=== PATIENT | female | born 2005 | race Caucasian/White ===

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

== ENCOUNTER → 2024-05-23 09:30 | Outpatient (CLI) | payer OTHER, SELFPAY ==
--- NOTE | 2024-05-23 10:05 | DI.RAD.S_ITS ---
PROCEDURE: XR CHEST 2V INDICATIONS: r/o pna, fever, pleuritic chest pain TECHNIQUE: 2 views of the chest were acquired. [facility] 10:36. FINDINGS: Surgical changes and devices: None. Lungs and pleura: Right lower lobe consolidation. Mediastinum: Mediastinal contours are normal. Heart size is normal. Bones and chest wall: No suspicious bony abnormalities. Soft tissues appear unremarkable. IMPRESSION: Right lower lobe consolidation, concerning for pneumonia. Dictated by: Johan Delvalle M.D. on 05/23/2024 at 14:29 Approved by: Johan Delvalle M.D. on 05/23/2024 at 14:30
[2024-05-23 10:13] LABS: Influenza A - CEPHEID Flu A NEGATIVE (NEGATIVE); Influenza B - CEPHEID Flu B NEGATIVE (NEGATIVE); Respiratory Syncytial Virus Negative (Negative)
[2024-05-23 10:28] LABS: COVID-19 CEPHEID 4-PLEX PCR Negative (Negative)
== END ==
PROVIDERS: Family Provider Family Medicine; PCP Family Medicine; Referring Provider Nurse Practitioner Family; Visit Provider Nurse Practitioner Family
DX: R05.1 Acute cough (principal); R05.9 Cough, unspecified
CPT/HCPCS: 0241U; 71046

== ENCOUNTER → 2024-06-03 08:07 | Outpatient (CLI) | payer OTHER, SELFPAY ==
--- NOTE | 2024-06-03 08:09 | DI.RAD.S_ITS ---
PROCEDURE: XR CHEST 2V INDICATIONS: Pneumonia FU TECHNIQUE: 2 views of the chest were acquired. COMPARISON: [facility], CR, XR CHEST 2V, 05/23/2024, 10:01. [facility], CR, XR CHEST 2V, 01/31/2019, 22:36. FINDINGS: Surgical changes and devices: None. Lungs and pleura: Right infrahilar opacity is decreased, but mild involvement persists seen on lateral view. No pleural effusions. Mediastinum: Normal heart size Bones and chest wall: Unremarkable IMPRESSION: Mild persistent opacity seen in the middle lobe, decreased but not fully resolved. Dictated by: Chris Olson M.D. on 06/03/2024 at 15:37 Approved by: Chris Olson M.D. on 06/03/2024 at 15:39
== END ==
PROVIDERS: Family Provider Family Medicine; PCP Family Medicine; Referring Provider Family Medicine; Visit Provider Family Medicine
DX: J18.9 Pneumonia, unspecified organism (principal); R05.9 Cough, unspecified
CPT/HCPCS: 71046

== ENCOUNTER 2024-06-07 13:42 | Emergency (ER) | payer OTHER, SELFPAY ==
[2024-06-07 14:03] VITALS: BP 123/66; PULSE 66; RESP 17; TEMP 37; O2SAT 96; BMI 35.7
--- NOTE | 2024-06-07 14:34 | ED_ITS ---
HPI - URI/Sore Throat <MARTINE Bland - Last Filed: 06/07/24 15:48> General Chief Complaint: Upper Respiratory Symptoms Stated Complaint: DX OF PNEUMONIA T-3 WEEKS, ANTIBIOTICS NOT WORK Time Seen by Provider: 06/07/24 14:16 Source: patient Mode of arrival: Ambulatory History of Present Illness HPI Narrative: 18-year-old female, never smoker, was brought to the emergency department for persistent cough x3 weeks. Patient was evaluated in the walk-in clinic on May 23, diagnosed with pneumonia and placed on cefdinir and azithromycin. Patient contacted her family doctor on June 03 regarding persistent coughing with a new chest x-ray and prescription for azithromycin. Patient has been taking her antibiotics for 4 days and complaining that her cough is worsening and now having left-sided chest wall discomfort. Patient mother are concerned that she may have whooping cough as her last Tdap was approximately 11 years ago. Patient and mother read that whooping cough is on the rise and want to be evaluated for this. Related Data Previous Rx's Medication Instructions Recorded hydroxyzine HCl 25 mg tablet 25 mg PO 3XD PRN for anxiety #270 03/20/23 tabs azithromycin 500 mg tablet See Rx Instructions PO .COMPLEX #9 05/23/24 tabs sertraline 25 mg tablet See Rx Instructions .Route 05/26/24 .COMPLEX #90 tabs Allergies Allergy/AdvReac Type Severity Reaction Status Date / Time amoxicillin [AMOXICILLIN] Allergy Mild SENSITIVE Verified 06/07/24 14:11 Sulfa (Sulfonamide Allergy Mild MOTHER Verified 06/07/24 14:11 Antibiotics) ALLERGIC [SULFA (SULFONAMIDE TO SULFA ANTIBIOTICS)] Review of Systems <MARTINE Bland - Last Filed: 06/07/24 15:48> Review of Systems Narrative: Narrative: See HPI. GENERAL: Denies chills, fatigue, fever, sweats. HEENT: Denies sinus pain, ear pain, sore throat, difficulty swallowing, dizziness. RESPIRATORY: Denies dyspnea, wheezing, sputum. Endorses persistent cough. CARDIOVASCULAR: Denies palpitations, edema. Endorses cough and left-sided chest wall pain. GASTROINTESTINAL: Denies nausea, vomiting, abdominal pain, diarrhea, constipation. MSK: Denies weakness, joint pain, or bony pain. SKIN: Denies rash, skin lesions, or pruritis. NEUROLOGIC: Denies weakness, dizziness, headache, numbness, confusion. Patient History <MARTINE Bland - Last Filed: 06/07/24 15:48> Medical History EVER (generalized anxiety disorder) Social History Smoking Status: Never smoker Smoking Status: Never smoker Exam <MARTINE Bland - Last Filed: 06/07/24 15:48> Narrative Exam Narrative: Exam Narrative: GENERAL: This is a well-nourished, well-developed patient, in no acute distress. HEAD: Atraumatic. Normocephalic. EYES: Pupils equal round and reactive. Extraocular motions intact. No scleral icterus, injection or drainage. ENT: Nose without bleeding, purulent drainage. Airway patent. CARDIOVASCULAR: Regular rate and rhythm without murmurs, peripheral pulses intact, cap refill <2 sec. RESPIRATORY: Breath sounds equal and clear bilaterally. No wheezes, rales, or rhonchi. No witnessed cough. No increased respiratory effort. No accessory muscle use. GASTROINTESTINAL: Abdomen soft, non-tender, nondistended without guarding or rebound. No suprapubic pain. MSK: Moves all extremities. Normal range of motion, no clubbing or edema. Neurovascularly intact. No bruising or signs of trauma noted to left lateral chest wall. NEURO: A&O x 3. SKIN: Warm, dry, no rashes or lesions noted. Initial Vital Signs Initial Vital Signs: Vital Signs Temperature 98.6 F 06/07/24 14:03 Pulse Rate 66 06/07/24 14:03 Respiratory Rate 17 06/07/24 14:03 Blood Pressure 123/66 06/07/24 14:03 Pulse Oximetry 96 06/07/24 14:03 Oxygen Delivery Method Room Air 06/07/24 14:03 Reviewed <Shreya Crowder DO - Last Filed: 06/09/24 18:11> Initial Vital Signs Initial Vital Signs: Vital Signs Temperature 98.6 F 06/07/24 14:03 Pulse Rate 66 06/07/24 14:03 Respiratory Rate 17 06/07/24 14:03 Blood Pressure 123/66 06/07/24 14:03 Pulse Oximetry 96 06/07/24 14:03 Oxygen Delivery Method Room Air 06/07/24 14:03 Course <MARTINE Bland - Last Filed: 06/07/24 15:48> Orders Ordered: ED Orders 06/07/24 14:33 XR chest 2V Stat 06/07/24 15:40 Respiratory Panel (Film Array) Stat Vital Signs Vital signs: Vital Signs - 8 hr 06/07/24 14:03 Temperature 98.6 F Pulse Rate 66 Respiratory Rate 17 Blood Pressure 123/66 Pulse Oximetry 96 Oxygen Delivery Method Room Air <Shreya Crowder DO - Last Filed: 06/09/24 18:11> Orders Ordered: ED Orders 06/07/24 14:33 XR chest 2V Stat 06/07/24 15:40 Respiratory Panel (Film Array) Stat Vital Signs Vital signs: Vital Signs - 8 hr 06/07/24 14:03 Temperature 98.6 F Pulse Rate 66 Respiratory Rate 17 Blood Pressure 123/66 Pulse Oximetry 96 Oxygen Delivery Method Room Air MDM - URI/Sore Throat <MARTINE Bland - Last Filed: 06/07/24 15:48> Differential Diagnosis Differential diagnosis: Likely upper respiratory infection and other (Pneumonia) Lab Data Labs: Lab Results 06/07/24 Range/Units 15:36 Chlamy pneumoniae PCR Not detected (Not Detect) Adenovirus (PCR) Not detected (Not Detect) B. pertussis DNA (PCR) Not detected (Not Detect) B.parapertussis DNA PCR Not detected (Not Detecte) Coronavirus OC43 (PCR) Not detected (Not Detect) Coronavirus HKU1 (PCR) Not detected (Not Detect) Coronavirus 229E (PCR) Not detected (Not Detect) SARS-CoV-2 (PCR) Not detected (Not Detecte) Coronavirus NL63 (PCR) Not detected (Not Detect) Human Metapneumovir PCR Not detected (Not Detect) Influenza Type A (PCR) Not detected (Not Detect) Influenza Type B (PCR) Not detected (Not Detect) M. pneumoniae (PCR) Not detected (Not Detect) Parainfluenza 1 (PCR) Not detected (Not Detect) Parainfluenza 2 (PCR) Not detected (Not Detect) Parainfluenza 3 (PCR) Not detected (Not Detect) Parainfluenza 4 (PCR) Not detected (Not Detect) RSV (PCR) Not detected (Not Detect) Entero/Rhino (PCR) Not detected (Not Detect) Imaging Data Chest x-ray: Radiologist's Impression: [address] [address] XRay Report Signed Patient: Laya Holcomb MR#: [id number] : 2005 Acct:[id number] Age/Sex: 18 / F Date of Service: 06/07/24 Loc: ED Accession Number: [id number] Procedure: XR chest 2V Ordering Provider: Jayden Lowe PROCEDURE: XR CHEST 2V INDICATIONS: Pneumonia x 2 weeks- persistent cough TECHNIQUE: 2 views of the chest were acquired. COMPARISON: [facility], CR, XR CHEST 2V, 06/03/2024, 8:16. [facility], CR, XR CHEST 2V, 05/23/2024, 10:01. [facility], CR, XR CHEST 2V, 01/31/2019, 22:36. [facility], CR, CHEST 2 VIEW, 10/08/2009, 10:36. FINDINGS: Surgical changes and devices: None. Lungs and pleura: Lungs are clear. No pleural effusions or pneumothorax. Mediastinum: Mediastinal contours are normal. Heart size is normal. Bones and chest wall: No suspicious bony abnormalities. Soft tissues appear unremarkable. IMPRESSION: No acute cardiothoracic process. Dictated by: Jarred Medina M.D. on 06/07/2024 at 14:56 Approved by: Jarred Medina M.D. on 06/07/2024 at 14:57 [facility] Narrative Medical decision making narrative: 18-year-old female with persistent cough secondary to diagnosis of pneumonia. Patient reports worsening symptoms that include left-sided chest wall pain and worsening cough. Although patient has received 2 chest x-rays in the last 3 weeks, due to worsening symptoms, will repeat chest x-ray and treat accordingly. Chest x-ray was normal and it appears that the pneumonia has fully resolved. Mother and patient are adamant that they want to be tested for whooping cough but would hold off on updating there Tdap until they see their family doctor. Mother and patient would like to leave and will contact them with the results of the respiratory panel. Patient mother verbalized understanding and were agreeable to course of action. <Shreya Crowder, DO - Last Filed: 06/09/24 18:11> Lab Data Labs: Lab Results 06/07/24 Range/Units 15:36 Chlamy pneumoniae PCR Not detected (Not Detect) Adenovirus (PCR) Not detected (Not Detect) B. pertussis DNA (PCR) Not detected (Not Detect) B.parapertussis DNA PCR Not detected (Not Detecte) Coronavirus OC43 (PCR) Not detected (Not Detect) Coronavirus HKU1 (PCR) Not detected (Not Detect) Coronavirus 229E (PCR) Not detected (Not Detect) SARS-CoV-2 (PCR) Not detected (Not Detecte) Coronavirus NL63 (PCR) Not detected (Not Detect) Human Metapneumovir PCR Not detected (Not Detect) Influenza Type A (PCR) Not detected (Not Detect) Influenza Type B (PCR) Not detected (Not Detect) M. pneumoniae (PCR) Not detected (Not Detect) Parainfluenza 1 (PCR) Not detected (Not Detect) Parainfluenza 2 (PCR) Not detected (Not Detect) Parainfluenza 3 (PCR) Not detected (Not Detect) Parainfluenza 4 (PCR) Not detected (Not Detect) RSV (PCR) Not detected (Not Detect) Entero/Rhino (PCR) Not detected (Not Detect) Discharge Plan Departure Patient Disposition: Home Clinical Impression: Cough Qualifiers: Cough type: unspecified Qualified Code(s): R05.9 - Cough, unspecified Instructions: DI for Cough -- Adult, DI for Pertussis-Adult Activity Restrictions/Additional Instructions: *You have been diagnosed with a cough. The chest x-ray was normal and I believe your pneumonia has fully resolved. You should continue taking the rest of your antibiotic therapy as previously prescribed. For treatment of cough you may try warm water or tea with honey and lemon, [id number] medications such as Delsym, etc.. Please make sure you stay well hydrated. We will contact you with the results of the respiratory panel. For any worsening symptoms that include chest pain, shortness of breath, intolerable pain, please return to the emergency department. Otherwise, follow up with family doctor as needed. *What to do: *Please continue to take your regular medications as directed. [ ] New medication prescriptions sent to your pharmacy: [ ] [ ] New medication written as a paper prescription [x ] No new medications given *Please follow up with your primary care provider in 2-3 days, call for an appointment. Let them know you were seen in the Emergency Department and that we ask that you be seen in follow up. We will electronically transmit a record of today's note if your PCP is in our system *If you do not have a primary care provider please contact the [facility] Resource line at [phone]. They will ask some questions about your medical history and help get you set up with a doctor in the community. ? Return to ER if you should have any new, worsening or concerning symptoms, such as worsening pain, severe headache, confusion, chest pain, difficulty b reathing, fever greater than 101 F, shaking chills, persistent vomiting to the point that you cannot drink fluids, or other new or worsening symptoms. Prescriptions: No Action azithromycin 500 mg tablet See Rx Instructions PO .COMPLEX Qty: 9 0RF Rx Instructions: For 250 mg dose pack: take 500 mg today (day 1), then 250 mg for 4 days (days 2-5) PO hydroxyzine HCl 25 mg tablet 25 mg PO 3XD PRN (Reason: for anxiety) Qty: 270 0RF sertraline 25 mg tablet See Rx Instructions .ROUTE .COMPLEX Qty: 90 3RF Dose Instruction: TAKE ONE TABLET BY MOUTH ONE TIME DAILY Rx Instructions: TAKE ONE TABLET BY MOUTH ONE TIME DAILY Referrals: Jo Suero MD [Primary Care Provider] - Stand Alone Forms: Patient Portal/API/Survey ED Sign-out <Shreya Crowder, - Last Filed: 06/09/24 18:11> Cosign ED Attending Sheialature Attestation: I was available for consultation.
[2024-06-07 15:55] VITALS: BP 112/64; PULSE 67; RESP 18; O2SAT 97
[2024-06-07 16:35] LABS: Adenovirus Not Detected (Not Detect); B. parapertussis Not Detected (Not Detecte); Bordetella pertussis Not Detected (Not Detect); Chlamydophila pneumoniae Not Detected (Not Detect); Coronavirus 229E Not Detected (Not Detect); Coronavirus HKU1 Not Detected (Not Detect); Coronavirus NL 63 Not Detected (Not Detect); Coronavirus OC43 Not Detected (Not Detect); Human Metapneumovirus Not Detected (Not Detect); Human Rhinovirus/Enterovirus Not Detected (Not Detect); Influenza A Not Detected (Not Detect); Influenza B Not Detected (Not Detect); Mycoplasma pneumoniae Not Detected (Not Detect); Parainfluenza Virus 1 Not Detected (Not Detect); Parainfluenza Virus 2 Not Detected (Not Detect); Parainfluenza Virus 3 Not Detected (Not Detect); Parainfluenza Virus 4 Not Detected (Not Detect); Respiratory Syncytial Virus Not Detected (Not Detect); SARS- CoV-2 Not Detected (Not Detecte)
--- NOTE | 2024-06-07 17:29 | PC.NURSE ---
Pt called with results of respiratory panel swab. Denies any further questions.
== END 2024-06-07 15:56 | disposition home or self-care (01) ==
PROVIDERS: Emergency Provider Registered Nurse; Family Provider Family Medicine; PCP Family Medicine
DX: R05.9 Cough, unspecified (principal); R07.89 Other chest pain
CPT/HCPCS: 71046; 87633; 99281; 99283

== ENCOUNTER → 2025-03-09 10:08 | Outpatient (CLI) | payer OTHER, SELFPAY ==
--- NOTE | 2025-03-09 10:10 | DI.RAD.S_ITS ---
PROCEDURE: XR CHEST 2V INDICATIONS: rule out pneumonia TECHNIQUE: 2 views of the chest were acquired. COMPARISON: [facility], CR, XR CHEST 2V, 06/07/2024, 14:39. FINDINGS: Surgical changes and devices: None. Lungs and pleura: Lungs are clear. No pleural effusions or pneumothorax. Mediastinum: Mediastinal contours are normal. Heart size is normal. Bones and chest wall: No suspicious bony abnormalities. Soft tissues appear unremarkable. IMPRESSION: No acute pulmonary process. Dictated by: Shauna Carey M.D. on 03/09/2025 at 15:06 Approved by: Shauna Carey M.D. on 03/09/2025 at 15:06
== END ==
PROVIDERS: Family Provider Family Medicine; PCP Family Medicine; Referring Provider Family Medicine; Visit Provider Family Medicine
DX: R06.02 Shortness of breath (principal)
CPT/HCPCS: 71046